=== PATIENT | female | born 1955 | race Two or more races ===

== ENCOUNTER → 2022-09-14 | Emergency (ER) | payer OTHER ==
[~2022-09-14] VITALS: Ht 160 cm; Wt 60.8 kg
[~2022-09-14] MED LIST: METFORMIN HCL500 M3 PO; SYNTHROID50 MCG PO
== END | disposition home or self-care (01) ==
LOC: ER 11:07
DX: R10.2 Pelvic and perineal pain (principal); E11.9 Type 2 diabetes mellitus without complications; Z79.84 Long term (current) use of oral hypoglycemic drugs; Z88.8 Allergy status to other drugs, medicaments and biological substances; K57.32 Diverticulitis of large intestine without perforation or abscess without bleeding

== ENCOUNTER 2022-12-20 04:21 | Emergency (ER) | payer OTHER ==
[~2022-12-20] VITALS: Ht 160 cm; Wt 59.0 kg
[2022-12-20] MEDS ORDERED: LEVSIN/SL0.125 MG SL (10:31)
== END 2022-12-20 10:50 | disposition home or self-care (01) ==
LOC: ER 04:21
DX: I88.0 Nonspecific mesenteric lymphadenitis (principal); K57.30 Diverticulosis of large intestine without perforation or abscess without bleeding

== ENCOUNTER 2023-06-01 23:26 | Emergency (ER) | payer OTHER ==
[~2023-06-01] VITALS: Ht 162.6 cm; Wt 68.0 kg
[~2023-06-01 23:26] MED LIST changes: +LEVSIN/SL0.125 MG SL
[2023-06-02 02:57] LABS: HEMATOCRIT 39.9 % (36.0-45.00); HEMOGLOBIN 13.1 g/dL (12.0-15.00); MEAN CELL VOLUME 89.9 fL (80.00-100.00); MEAN CORPUSCULAR HEMOGLOBIN 29.6 pg (27.00-32.0); PLATELET COUNT 283 K/uL (150-450); RED BLOOD COUNT 4.44 M/uL (4.00-6.00); RED CELL DISTRIBUTION WIDTH 14.2 % (11.5-14.5)
[2023-06-02 03:15] LABS: BILIRUBIN TOTAL 0.74 mg/dL (0.3-1.2); CALCIUM 9.5 mg/dL (8.5-10.1); CREATININE SERUM 0.88 mg/dL (0.55-1.02); GFR 64.29; GLOBULINA 4.2 G/DL (2.4-3.5); POTASSIUM 3.77 mEq/L (3.5-5.1); TOTAL PROTEIN 8.2 gm/dL (6.4-8.2)
[2023-06-02 06:10] LABS: PH,URINE 5.5 (5.0-8.0); URINE APPEARANCE Clear; URINE BILIRRUBIN Negative (NEGATIVE); URINE BLOOD Negative; URINE COLOR Yellow; URINE GLUCOSE Negative (NEGATIVE); URINE LEUKOCYTE Negative; URINE NITRATE Negative; URINE PROTEIN Trace (NEGATIVE); URINE UROBILINOGEN 0.2 E.U./dl
[2023-06-02 06:14] LABS: URINE BACTERIA 731.9 uL (0.0-1933); URINE EPITHELIAL CELLS 31.5 uL (0.0-38.8); URINE RBC 11.9 uL (0.0-20.8); URINE WBC 23.6 uL (0.0-23.2)
[2023-06-02 07:18] LABS: URINE CRYSTALS MANY /HPF
[2023-06-02] MEDS ORDERED: PEPCID40 MG PO (07:33)
[2023-06-02] MEDS ORDERED: LEVSIN/SL0.125 MG SL (07:33)
[2023-06-02] MEDS ORDERED: ONDANSETRON ODT4 MG PO (07:33)
== END 2023-06-02 08:06 ==
LOC: ER 23:27
PROVIDERS: General Practice
DX: R11.10 Vomiting, unspecified (principal); E03.8 Other specified hypothyroidism; E11.9 Type 2 diabetes mellitus without complications; Z79.84 Long term (current) use of oral hypoglycemic drugs; Z88.6 Allergy status to analgesic agent

== ENCOUNTER → 2024-09-20 | Outpatient (CLI) | payer OTHER ==
[~2024-09-20] MED LIST changes: +ONDANSETRON ODT4 MG PO; +PEPCID40 MG PO
== END | disposition home or self-care (01) ==
LOC: SONOGRAMA 12:58
DX: M75.82 Other shoulder lesions, left shoulder (principal); M75.81 Other shoulder lesions, right shoulder

== ENCOUNTER 2025-07-18 11:09 | Emergency (ER) | payer OTHER ==
[~2025-07-18] VITALS: Ht 157.5 cm; Wt 57.6 kg
[2025-07-18] MEDS ORDERED: NORVASC2.5 MG PO (11:12)
[2025-07-18] MEDS ORDERED: CEFTRIAXONE SODIUM 2,000 MG VIAL IV ONE (11:45)
[2025-07-18 12:18] LABS: BASO % 0.5 % (0.1-1.2); EOS # 0.05 (0.04-0.54); EOS % 0.4 % (0.7-7.0); LYMPH # 0.89 (1.18-3.74); LYMPH % 7.6 % (19.3-53.1); MEAN PLATELET VOLUME 9.80 fl (9.4-12.4); MONO # 0.56 (0.24-0.82); MONO % 4.8 % (4.7-12.5); NEUT # 10.14 (1.56-6.13); NEUT % 86.1 % (34.0-71.1); RED CELL DISTRIBUTION WIDTH 13.6 % (11.6-14.4)
[2025-07-18 12:41] LABS: BUN CREA RATIO 16.0 (7.0-25.0); CREATININE SERUM 0.86 mg/dL (0.55-1.02); GFR 65.42; GLUCOSE FASTING 179.0 mg/dL (65-100); OSMOLALITY SERUM 290.0 MOSM/KG (275-295)
[2025-07-18 13:07] LABS: URINE APPEARANCE Clear; URINE BILIRRUBIN Negative (NEGATIVE); URINE BLOOD Large; URINE COLOR Dark Yellow; URINE GLUCOSE Negative (NEGATIVE); URINE KETONE Negative (NEGATIVE); URINE LEUKOCYTE Small; URINE NITRATE Positive; URINE PROTEIN Negative (NEGATIVE); URINE UROBILINOGEN 1.0 E.U./dl
[2025-07-18 13:10] LABS: URINE BACTERIA 66.0 uL (0.0-1933); URINE EPITHELIAL CELLS 1.6 uL (0.0-38.8); URINE RBC 3.6 uL (0.0-20.8); URINE WBC 37.6 uL (0.0-23.2)
[2025-07-18 13:22] LABS: URINE CAST 0.00 uL (0.0-1.40)
== END 2025-07-18 14:43 | disposition home or self-care (01) ==
LOC: ER 11:10
PROVIDERS: Emergency Medicine
DX: N39.0 Urinary tract infection, site not specified (principal); R31.9 Hematuria, unspecified; I10 Essential (primary) hypertension; E11.9 Type 2 diabetes mellitus without complications; Z79.84 Long term (current) use of oral hypoglycemic drugs; Z20.822 Contact with and (suspected) exposure to COVID-19; Z88.8 Allergy status to other drugs, medicaments and biological substances
CPT/HCPCS: 36415; 74176; 96365; 99283; J0696

== ENCOUNTER 2025-07-30 14:00 | Inpatient (IN) | payer OTHER ==
[~2025-07-30] VITALS: Ht 152.4 cm; Wt 57.6 kg
[~2025-07-30 14:00] MED LIST changes: +NORVASC2.5 MG PO
--- NOTE | 2025-07-30 16:21 | NUR ---
PACIENTE ALERTA Y ORIENTADA X 3. REFIERE DOLOR EN AREA DE COSTADO, PELVICO, ARDOR AL ORINAR, SENSACION DE QUE NO TERMINO DE ORINAR, ORINA FRECUENTE Y PRESENTO NIMO EN ORINA.
[2025-07-30] MEDS ORDERED: MILLIPRED5 MG (16:22)
[2025-07-30] MEDS ORDERED: FOSAMAX70 MG PO (16:23)
[2025-07-30] MEDS ORDERED: FOLIC ACID0.8 M1 (16:23)
[2025-07-30] MEDS ORDERED: TREXALL15 MG (16:24)
[2025-07-30] MEDS ORDERED: 0.9 % SODIUM CHLORIDE 500 ML IV ONE (17:15)
[2025-07-30] MEDS ORDERED: KETOROLAC TROMETHAMINE 30 MG VIAL IV ONE (17:30)
[2025-07-30] MEDS ORDERED: KETOROLAC TROMETHAMINE 30 MG VIAL ONE (18:00)
[2025-07-30] MEDS ORDERED: ACETAMINOPHEN 500 MG GEL..CAP PO ONE ×2 (19:15→19:36)
--- NOTE | 2025-07-30 19:22 | NUR ---
MEDICO EVALUA PACIENTE, SE LE ADMINISTRA MEDICAMENTOS MARCO ANTONIO ORDEN MEDICA Y SE LE GENEVIEVE MUESTRAS DE LABORATORIOS.
[2025-07-30 19:25] LABS: URINE APPEARANCE Cloudy; URINE BILIRRUBIN Negative (NEGATIVE); URINE BLOOD Large; URINE COLOR Yellow; URINE GLUCOSE Negative (NEGATIVE); URINE KETONE Negative (NEGATIVE); URINE LEUKOCYTE Large; URINE NITRATE Negative; URINE PROTEIN Trace (NEGATIVE); URINE UROBILINOGEN 0.2 E.U./dl
[2025-07-30 19:26] LABS: URINE BACTERIA 2527.9 uL (0.0-1933); URINE RBC 16.4 uL (0.0-20.8)
[2025-07-30 19:34] LABS: BASO % 0.3 % (0.1-1.2); EOS # 0.02 (0.04-0.54); EOS % 0.1 % (0.7-7.0); LYMPH # 1.22 (1.18-3.74); LYMPH % 8.4 % (19.3-53.1); MEAN PLATELET VOLUME 10.00 fl (9.4-12.4); MONO # 0.74 (0.24-0.82); MONO % 5.1 % (4.7-12.5); NEUT # 12.42 (1.56-6.13); NEUT % 85.7 % (34.0-71.1); RED CELL DISTRIBUTION WIDTH 13.8 % (11.6-14.4)
[2025-07-30 19:57] LABS: ALT/SGPT 28.0 U/L (12-78); AST/SGOT 16.0 U/L (15-37); BILIRUBIN TOTAL 0.98 mg/dL (0.3-1.2); BUN CREA RATIO 12.0 (7.0-25.0); CREATININE SERUM 0.92 mg/dL (0.55-1.02); GFR 60.53; GLOBULINA 4.0 G/DL (2.4-3.5); GLUCOSE FASTING 170.0 mg/dL (65-100); OSMOLALITY SERUM 283.0 MOSM/KG (275-295)
[2025-07-30 20:12] LABS: URINE CAST 0.70 uL (0.0-1.40); URINE EPITHELIAL CELLS 0.7 uL (0.0-38.8)
[2025-07-30] MEDS ORDERED: PIPERACILLIN/TAZOBACTAM SODIUM 3.375 GM VIAL IV ONE ×2 (21:50→22:00)
[2025-07-30] MEDS ORDERED: AMLODIPINE BESYLATE 2.5 MG TABLET PO SCH (21:52)
[2025-07-30] MEDS ORDERED: LEVOTHYROXINE SODIUM 50 MCG TABLET PO SCH (21:54)
[2025-07-30] MEDS ORDERED: PREDNISONE 5 MG TABLET PO SCH (21:54)
[2025-07-30] MEDS ORDERED: INSULIN LISPRO 1,000 UNIT/10 ML UNITS SUBCUTANEO PRN (22:00)
[2025-07-30] MEDS ORDERED: DEXTROSE 50 % IN WATER 0.5 G/ML DISP.SYRIN IV PRN (22:00)
[2025-07-31] MEDS ORDERED: ACETAMINOPHEN 500 MG GEL..CAP PO ONE (00:06)
[2025-07-31 08:00] VITALS: BP 130/70
[2025-07-31 08:47] LABS: INR 1.0
[2025-07-31 09:00] VITALS: BP 129/74; O2SAT 100
[2025-07-31] MEDS ORDERED: CIPROFLOXACIN IN 5 % DEXTROSE 400 MG/200 ML PIGGYBAG IV SCH (12:51)
[2025-07-31 18:12] VITALS: BP 125/72; O2SAT 99
[2025-07-31] MEDS ORDERED: ACETAMINOPHEN 500 MG GEL..CAP PO PRN (19:15)
[2025-07-31] MEDS ORDERED: KETOROLAC TROMETHAMINE 30 MG VIAL IV PRN (19:30)
[2025-07-31] MEDS ORDERED: LACTOBACILLUS ACIDOPHILUS 1 CAP CAP PO NR (19:30)
[2025-07-31] MEDS ORDERED: PANTOPRAZOLE SODIUM 40 MG TABLET.DR PO SCH (21:00)
[2025-08-01 00:14] VITALS: BP 117/69; O2SAT 99
[2025-08-01 06:56] LABS: BASO % 0.7 % (0.1-1.2); EOS # 0.12 (0.04-0.54); EOS % 1.8 % (0.7-7.0); LYMPH # 1.09 (1.18-3.74); LYMPH % 16.3 % (19.3-53.1); MEAN PLATELET VOLUME 10.50 fl (9.4-12.4); MONO # 0.52 (0.24-0.82); MONO % 7.8 % (4.7-12.5); NEUT # 4.86 (1.56-6.13); NEUT % 72.8 % (34.0-71.1); RED CELL DISTRIBUTION WIDTH 13.8 % (11.6-14.4)
[2025-08-01 07:19] LABS: BUN CREA RATIO 17.0 (7.0-25.0); CREATININE SERUM 0.65 mg/dL (0.55-1.02); GFR 90.37; GLUCOSE FASTING 172.0 mg/dL (65-100); OSMOLALITY SERUM 292.0 MOSM/KG (275-295)
[2025-08-01 08:00] VITALS: BP 138/73; O2SAT 98
[2025-08-01] MEDS ORDERED: PREDNISONE 10 MG TABLET PO SCH (09:00)
[2025-08-01] MEDS ORDERED: LACTOBACILLUS ACIDOPHILUS 1 CAP CAP PO SCH (09:00)
[2025-08-01 18:24] VITALS: BP 125/72; O2SAT 98
[2025-08-01] MEDS ORDERED: PANTOPRAZOLE SO40 MG PO (20:16)
[2025-08-01] MEDS ORDERED: INTESTINEX680 M1 PO (20:16)
[2025-08-01] MEDS ORDERED: LEVOFLOXACIN750 MG PO (20:16)
[2025-08-02] VITALS: BP 160/96; O2SAT 100
== END 2025-08-01 20:52 | disposition home or self-care (01) | DRG 690 ==
LOC: ER 14:05 → SEC-K 21:55 → SURG 07-31 15:18
PROVIDERS: General Practice; ADMIT Internal Medicine; ATTEND Internal Medicine
PROC: BW21ZZZ Computerized Tomography (CT Scan) of Abdomen and Pelvis (ICD-10-PCS; principal; 2025-07-30)
DX: N39.0 Urinary tract infection, site not specified (principal); R31.9 Hematuria, unspecified; R10.20 Pelvic and perineal pain unspecified side; R10.A1 Flank pain, right side; N20.9 Urinary calculus, unspecified; R30.0 Dysuria; B96.20 Unspecified Escherichia coli [E. coli] as the cause of diseases classified elsewhere